=== PATIENT | female | born 1995 | race Asian ===

== ENCOUNTER 2017-03-20 19:55 | Emergency (ER) | payer OTHER ==
[2017-03-20 20:32] VITALS: BP 106/70; PULSE 88; TEMP 98.4; BMI 19.5
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
[2017-03-20] MEDS ORDERED: IBUPROFEN 600 MG TABLET (FP) PO ONE (22:27)
[2017-03-20] MEDS: IBUPROFEN 600 MG TABLET (FP) PO ONE (22:28)
== END 2017-03-20 23:05 | disposition home or self-care (01) ==
LOC: FER 19:55
DX: S16.1XXA Strain of muscle, fascia and tendon at neck level, initial encounter (principal); V43.62XA Car passenger injured in collision with other type car in traffic accident, initial encounter; Y93.89 Activity, other specified; Y92.410 Unspecified street and highway as the place of occurrence of the external cause
CPT/HCPCS: 70450-TC; 72050-TC; 99282-25

== ENCOUNTER 2018-11-19 11:06 | Emergency (ER) | payer OTHER ==
--- NOTE | 2018-11-19 11:11 | PDOC ---
History of Present Illness - General Chief Complaint: Eye Problem Stated Complaint: LEFT EYE SWELLING Time Seen by Provider: 11/19/18 11:10 - History of Present Illness Initial Comments: 23yo F with no significant PMH presenting with left upper eyelid swelling. Patient states it started yesterday morning. She endorses pain to the upper eyelid. She reports that the white of her eye was pink yesterday but not today. She denies vision changes, discharge from the eye, or foreign body. Does not use contact lenses or glasses. No recent trauma to her eye or sick contacts. No fevers or chills. Past History - Past Medical History Allergies/Adverse Reactions: Allergies Allergy/AdvReac Type Severity Reaction Status Date / Time No Known Allergies Allergy Verified 11/19/18 11:07 Home Medications: Ambulatory Orders NK [No Known Home Medication] 03/20/17 Thyroid Disease: No - Suicide/Smoking/Psychosocial Hx Smoking History: Never smoked Hx Alcohol Use: No Drug/Substance Use Hx: No Substance Use Type: None Review of Systems - Review of Systems Comments:: Constitutional: no fever, no chills HEENT: +eye pain, no throat pain Cardiovascular: no chest pain, no palpitations Respiratory: no cough, no shortness of breath Gastrointestinal: no abdominal pain, no nausea Genitourinary: no dysuria, no frequency Musculoskeletal: no myalgia, no arthralgia Skin: no rash, no itching Neurologic: no headache, no dizziness *Physical Exam - Physical Exam Comments: General: Awake, alert, and fully oriented, in no acute distress Head: No signs of trauma Eyes: PERRL, EOMI, edema present on L. upper eyelid Visual acuity: OD 20/15, OS 20/15, OU 2014 no foreign body present in eye ENT: Moist mucus membranes Neck: Normal ROM, supple Lungs: Lungs clear, Normal breath sounds Cardio: Regular rhythm, S1 and S2 present Abdomen: Soft, nontender Extremities: Normal range of motion, Distal pulses present SKIN: Warm, Dry, normal turgor Neurologic: Cranial nerves II through XII grossly intact. Normal speech Medical Decision Making - Medical Decision Making 23yo F with no significant PMH presenting with left upper eyelid swelling. -DDX includes but not limited to eye irritation/inflammation, allergic reaction , conjunctivitis, blepharitis -Visual acuity normal, negative fluorescein test to left eye -Patient's upper eyelid swelling likely due to irritation or allergy; advised warm compresses, artificial tear eye drops, and benadryl -Patient discharged 11/19/18 12:57 *DC/Admit/Observation/Transfer Diagnosis at time of Disposition: Eyelid pain - Discharge Dispostion Disposition: HOME Condition at time of disposition: Stable - Referrals Referrals: Joellen Vallejo MD [Primary Care Provider] - Mauricio Richardson MD [Staff Physician] - - Patient Instructions Additional Instructions: You came into the ED for eyelid pain and swelling. Your exam showed that this is likely related to eyelid irritation, possibly due to an allergy. Take benadryl, apply [id number] eye drops like artificial tears to the affected eye, and apply warm compresses every twenty minutes to relieve your symptoms. If your symptoms do not improve in one week, we have referred you to an store receiving specialist. Call and make an appointment. Immediate medical attention is required if you have: Any change in vision; feeling there is something in your eye, ulcers or open cuts on your eyelids; signs of infection including fever and chills; or any new or concerning symptoms. If you think you are having an emergency, call for emergency medical services or present to the emergency department right away. - Post Discharge Activity
[2018-11-19 11:28] VITALS: BP 122/80; PULSE 81; TEMP 98.3; BMI 20.4
--- NOTE | 2018-11-19 11:33 | PDOC ---
Attending Attestation - Resident Resident Name: Renetta Kaur - ED Attending Attestation I have performed the following: I have examined & evaluated the patient, The case was reviewed & discussed with the resident, I agree w/resident's findings & plan, Exceptions are as noted - HPI HPI: 11/19/18 12:01 23 years old no past medical history presents to the ED with 2 day history of left upper eyelid swelling. No changes in vision no pain to eye itself does not remember rubbing anything into the eye yesterday the eye. A little bit red but that has since resolved Symptoms are moderate persistent constant no associated fever chills headache blurry vision double vision. - Physicial Exam PE: 11/19/18 12:02 Vitals: Triage Vital signs reviewed General Appearance: no acute distress, well nourished well developed, Head: Atraumatic, Eyes: Pupils equal reactive round, extraocular movement intact left upper eyelid swelling no identifiable stye or chalazion. No fluorescein uptake. Extremities: Full range of motion to all extremities, no cyanosis, clubbing, or edema Skin: Warm and dry, no rashes or lesions, no rash, no petechiae Psych: normal mood, normal affect - Medical Decision Making 11/19/18 12:03 Well-appearing no apparent distress visual acuity 20/20 bilaterally History examination consistent with upper eyelid swelling possibly secondary to ALLERGIC reaction versus early infection We'll recommend warm compresses Benadryl and ophthalmology follow-up Findings, the need for follow-up and strict return instructions discussed patient.
[2018-11-19] MEDS ORDERED: FLUORESCEIN NA 1 EA STRIP OS ONE (11:43)
[2018-11-19] MEDS ORDERED: TETRACAINE 0.5% HCL 0.6ML DROPPER.BOTTLE OS ONE (11:43)
[2018-11-19] MEDS ORDERED: FLUORESCEIN NA 1 EA STRIP ONE (11:44)
[2018-11-19] MEDS ORDERED: TETRACAINE 0.5% OPHTH SOLN 2 ML BOTTLE ONE (11:44)
[2018-11-19] MEDS ORDERED: diphenhydrAMINE HCL 25 MG CAPSULE (FP) PO ONE ×2 (11:54→12:10)
== END 2018-11-19 12:17 | disposition home or self-care (01) ==
LOC: FER 11:06
DX: H57.12 Ocular pain, left eye (principal)
CPT/HCPCS: 99282-25

== ENCOUNTER 2020-01-26 18:52 | Emergency (ER) | payer OTHER ==
[2020-01-26] MEDS ORDERED: ACETAMINOPHEN 325 MG TABLET (FP) PO ONE (19:15)
[2020-01-26 19:20] VITALS: BP 141/71; PULSE 83; TEMP 98.3; BMI 19.7
[2020-01-26] MEDS ORDERED: ACETAMINOPHEN 325 MG TABLET (FP) ONE (19:21)
--- NOTE | 2020-01-26 19:54 | PDOC ---
Documentation entered by Ashlie Hernandez SCRIBE, acting as scribe for Sandra Peña MD. Sandra Peña MD: This documentation has been prepared by the brandanibe, Ashlie Hernandez SCRIBE, under my direction and personally reviewed by me in its entirety. I confirm that the documentation accurately reflects all work, treatment, procedures, and medical decision making performed by me. History of Present Illness - General Chief Complaint: Injury Stated Complaint: FALL HIT HEAD HIP PAIN History Source: Patient Exam Limitations: No Limitations - History of Present Illness Initial Comments: 01/26/20 19:17 Patient is a 24 year old female with no significant medical history who reports to the ED today due to a fall. Patient states she tripped, fell and hit her hip, head and shoulder. Patient reports nausea. Patient took ibuprofen around 4am with no relief. also c/o right shoudler and hip pain. has been ambulating. can move shoulder. took motrin at 4 am after fall, nothing since. no confusion. no vomting. no loc associated with her fall. states she is not . Patient denies blacking out, fever, nausea, cough and SOB. 01/26/20 19:54 Past History - Past Medical History Allergies/Adverse Reactions: Allergies Allergy/AdvReac Type Severity Reaction Status Date / Time No Known Allergies Allergy Verified 11/19/18 11:07 Home Medications: Ambulatory Orders NK [No Known Home Medication] 03/20/17 COPD: No Thyroid Disease: No - Psycho Social/Smoking Cessation Hx Smoking History: Never smoked Hx Alcohol Use: No Drug/Substance Use Hx: No Substance Use Type: None Review of Systems - Review of Systems Able to Perform ROS?: Yes Constitutional: No: Chills, Diaphoresis HEENTM: No: Eye Pain Respiratory: No: Cough, Orthopnea Cardiac (ROS): No: Chest Pain, Edema ABD/GI: Yes: Nausea : No: Burning, Dysuria Musculoskeletal: Yes: Joint Pain Integumentary: No: Bruising, Change in Color Neurological: No: Headache, Numbness, Weakness All Other Systems: Reviewed and Negative *Physical Exam - Physical Exam 01/26/20 19:56 awake alert lungs clear bilat heart rrr no mrg abd soft nt nd eext wwp. right shoulder ttp. no visible ecymosis. from. n/v intact. right hip ttp. from. knee ankle from. gait normal. head atraumatic. no c t l spine tenderness. 01/26/20 19:56 Medical Decision Making - Medical Decision Making 01/26/20 19:49 24 yo s/p triap and fall at 4 am today. c/o nausea, and hip and shoulder pain. took motrin at 4 am. no vomiting no loc no confusion. on head exam no signs of trauma. due to young age risk benefit of ct d/w patient currently no indication as no loc no signs of trauma. plan xray hip and shoulder r/o fx. dc home. pt refusing test. states she is virginal. Discharge - Discharge Information Problems reviewed: Yes Clinical Impression/Diagnosis: Contusion, Head injury Condition: Good Disposition: HOME - Admission No - Follow up/Referral - Patient Discharge Instructions Patient Printed Discharge Instructions: DI for Closed Head Injury Additional Instructions: you will be sore for up to one week. you can take motrin 400 mg every 8 hours as needed for pain. return for confusion vomiting or any change to mental status. follow up with your primary doctor. your xrays today are negative for any fracture. - Post Discharge Activity
== END 2020-01-26 19:59 | disposition home or self-care (01) ==
LOC: FER 18:52
DX: S09.90XA Unspecified injury of head, initial encounter (principal); S40.011A Contusion of right shoulder, initial encounter; W01.0XXA Fall on same level from slipping, tripping and stumbling without subsequent striking against object, initial encounter; Y93.89 Activity, other specified; Y92.89 Other specified places as the place of occurrence of the external cause
CPT/HCPCS: 73030-TC-RT-FY; 73502-TC-RT-FY; 99283-25

== ENCOUNTER 2021-05-20 04:47 | Emergency (ER) | payer OTHER ==
[2021-05-20 04:55] VITALS: BP 128/88; PULSE 93; TEMP 98.7; BMI 21.4
[2021-05-20] MEDS ORDERED: IBUPROFEN 400 MG TABLET (FP) PO ONE ×2 (04:57)
[2021-05-20] MEDS ORDERED: DIPHTH,PERTUSS(ACELL),TET 0.5 ML DISP.SYRIN IM ONE ×2 (05:55→05:56)
== END 2021-05-20 06:02 | disposition home or self-care (01) ==
LOC: FER 04:47
PROC: 3E0234Z Introduction of Serum, Toxoid and Vaccine into Muscle, Percutaneous Approach (ICD-10-PCS; principal; 2021-05-20)
DX: S93.401A Sprain of unspecified ligament of right ankle, initial encounter (principal); Y99.8 Other external cause status
CPT/HCPCS: 73610-TC-RT-FY; 73630-TC-RT-FY; 90715; 99283-25

== ENCOUNTER 2022-05-05 21:30 | Emergency (ER) | payer OTHER ==
[2022-05-05 21:42] VITALS: BP 134/86; PULSE 104; TEMP 98.5; BMI 23.0
== END 2022-05-05 22:08 | disposition home or self-care (01) ==
LOC: FER 21:30
DX: R07.81 Pleurodynia (principal); R51.9 Headache, unspecified
CPT/HCPCS: 93005; 99283-25

== ENCOUNTER 2023-11-13 09:03 | Emergency (ER) | payer OTHER ==
[2023-11-13] MEDS ORDERED: ONDANSETRON 4 MG/2 ML VIAL IVPUSH ONE (09:25)
[2023-11-13] MEDS ORDERED: ACETAMINOPHEN 1000 MG/100 ML BAG IVPB ONE (09:25)
[2023-11-13] MEDS ORDERED: SODIUM CHLORIDE 0.9% 500 ML INFUS.BAG IV ONE ×2 (09:25→10:08)
[2023-11-13] MEDS ORDERED: FAMOTIDINE 20 MG/50 ML IVPB 20 MG/50 ML MG IVPB ONE ×2 (09:26→09:33)
[2023-11-13 09:27] VITALS: BP 128/77; PULSE 77; RESP 20; TEMP 98.2; BMI 21.4
[2023-11-13] MEDS ORDERED: ACETAMINOPHEN INJECTION 100 ML IVPB ONE (09:33)
[2023-11-13] MEDS ORDERED: ONDANSETRON 4 MG/2 ML VIAL ONE (09:34)
[2023-11-13 10:09] LABS: HEMATOCRIT 40.5 % (32.4-45.2); HEMOGLOBIN 13.8 G/dL (10.7-15.3); MCH 30.9 pg (25.7-33.7); MEAN CELL VOLUME 90.8 fl (80-96); MEAN PLT VOLUME 9.4 fl (7.5-11.1); PLATELET COUNT 286.3 10^3/uL (134-434); RBC 4.46 10^6/uL (3.60-5.2); RDW 13.8 % (11.6-15.6); WHITE BLOOD COUNT 13.6 10^3/uL (4.0-10.8)
[2023-11-13 10:19] LABS: ALBUMIN 4.7 g/dl (3.4-5.0); BILIRUBIN,TOTAL 0.9 mg/dl (0.2-1); CALCIUM 9.8 mg/dl (8.5-10.1); CREATININE 0.8 mg/dl (0.6-1.3); POTASSIUM 3.9 mmol/L (3.5-5.1)
[2023-11-13] MEDS ORDERED: KETOROLAC TROMETHAMINE 30 MG/1 ML VIAL IVPUSH ONE (10:24)
[2023-11-13] MEDS ORDERED: KETOROLAC TROMETHAMINE 15 MG/ML VIAL ONE (10:25)
[2023-11-13 11:14] LABS: PLATELET ESTIMATE ADEQUATE
== END 2023-11-13 12:13 | disposition home or self-care (01) ==
LOC: FER 09:03
PROC: 3E033GC Introduction of Other Therapeutic Substance into Peripheral Vein, Percutaneous Approach (ICD-10-PCS; principal; 2023-11-13)
PROC: 3E033NZ Introduction of Analgesics, Hypnotics, Sedatives into Peripheral Vein, Percutaneous Approach (ICD-10-PCS; 2023-11-13)
PROC: 3E0333Z Introduction of Anti-inflammatory into Peripheral Vein, Percutaneous Approach (ICD-10-PCS; 2023-11-13)
PROC: 3E033GC Introduction of Other Therapeutic Substance into Peripheral Vein, Percutaneous Approach (ICD-10-PCS; 2023-11-13)
DX: R11.2 Nausea with vomiting, unspecified (principal); R19.7 Diarrhea, unspecified; R10.84 Generalized abdominal pain; K52.9 Noninfective gastroenteritis and colitis, unspecified
CPT/HCPCS: 36415; 80053; 85027; 99284-25

== ENCOUNTER 2024-12-12 04:23 | Emergency (ER) | payer OTHER ==
[2024-12-12 04:29] VITALS: BMI 23.0
[2024-12-12] MEDS ORDERED: TERBUTALINE SULFATE 1 MG/1 ML VIAL SQ ONE (04:33)
[2024-12-12] MEDS ORDERED: RACEPINEPHRINE IH SOL 2.25% 11.25 MG/0.5 ML VIAL NEB ONE (04:33)
[2024-12-12] MEDS ORDERED: diphenhydrAMINE HCL 25 MG CAPSULE (FP) PO ONE (04:33)
[2024-12-12] MEDS ORDERED: guaiFENesin/CODEINE 10 ML UNIT-DOSE CUPS ONE (04:33)
[2024-12-12] MEDS: TERBUTALINE SULFATE 1 MG/1 ML VIAL SQ ONE (05:08)
[2024-12-12] MEDS: SODIUM CHLORIDE 0.9% 500 ML INFUS.BAG IV ONE (05:09)
[2024-12-12] MEDS: diphenhydrAMINE HCL 25 MG CAPSULE (FP) PO ONE (05:09)
[2024-12-12] MEDS: SODIUM CHLORIDE FOR INHALATION 3 ML VIAL.NEB IH ONE (05:09)
[2024-12-12] MEDS: guaiFENesin/CODEINE 10 ML UNIT-DOSE CUPS PO ONE (05:09)
[2024-12-12] MEDS: RACEPINEPHRINE IH SOL 2.25% 11.25 MG/0.5 ML VIAL IH ONE (05:09)
[2024-12-12 06:05] LABS: POTASSIUM 3.9 mmol/L (3.5-5.1)
[2024-12-12 06:08] LABS: ALBUMIN 3.9 g/dl (3.4-5.0); CALCIUM 9.8 mg/dL (8.5-10.1)
[2024-12-12 06:12] LABS: CREATININE 0.9 mg/dL (0.55-1.3)
[2024-12-12 06:13] LABS: BILIRUBIN,TOTAL 0.3 mg/dL (0.2-1); TOT PROT 7.9 g/dl (6.4-8.2)
[2024-12-12 07:02] LABS: BASO % 0.3 % (0-2.0); EOS % 0.3 % (0-4.5); HEMATOCRIT 36.3 % (32.4-45.2); LYMPH % 30.6 % (8-40); MCH 29.6 pg (25.7-33.7); MCHC 33.1 g/dl (32.0-36.0); MEAN CELL VOLUME 89.3 fl (80-96); MEAN PLT VOLUME 9.3 fl (7.5-11.1); MONO % 6.2 % (3.8-10.2); NEUT % 62.6 % (42.8-82.8); PLATELET COUNT 351 10^3/uL (134-434); RBC 4.06 M/mm3 (3.60-5.2); RDW 13.6 % (11.6-15.6); WHITE BLOOD COUNT 13.5 K/mm3 (4.0-10.0)
[2024-12-12 07:20] VITALS: RESP 18; TEMP 98.2
[2024-12-12 09:36] VITALS: BP 121/95; PULSE 82
== END 2024-12-12 09:59 | disposition home or self-care (01) ==
LOC: FER 04:23
DX: R05.2 Subacute cough (principal); Z20.822 Contact with and (suspected) exposure to COVID-19
CPT/HCPCS: 0241U-QW; 36415; 71046-TC-FY; 80053; 85025; 99284-25